=== PATIENT | female | born 1975 | race Caucasian/White ===

== ENCOUNTER 2017-01-29 19:46 | Inpatient (IN) | payer MEDICAID ==
[~2017-01-29] VITALS: Ht 170.2 cm; Wt 76.7 kg
[2017-01-29 19:48] VITALS: BP 162/117
--- NOTE | 2017-01-29 20:00 | NUR ---
PD AT BEDSIDE, PLACED ON 5150 HOLD.
--- NOTE | 2017-01-29 20:00 | NUR ---
PT WILLEM BLS. TAKEN TO BED 6
--- NOTE | 2017-01-29 20:05 | NUR ---
PATIENT IS A 41 Y/O FEMALE BIB [facility]/PD WHO PRESENTS TO THE ED C/O SUICIDAL IDEATION. PER PD PATIENT WAS FOUND OUTSIDE OF A [employer] WITH [employer] SHOUTING OUT THOUGHTS OF SUICIDAL IDEATION. PT ALTERED UPON ARRIVAL IN ED, RR EVEN/UNLABORED. DENIES CP, SOB, N/V/D AND PAIN. CLOTHING REMOVED, PT BELONGINGS SENT WITH SECURITY, EMT TIMMY AT THE BEDSIDE. PT REPOSITIONED FOR COMFORT, BED IN LOWEST POSITION. ER MD DR. CRISTINA NOTIFIED. WILL CONTINUE TO MONITOR.
[2017-01-29] MEDS ORDERED: LORazepam 1 MG TAB PO ONE ×2 (20:35→23:35)
--- NOTE | 2017-01-29 20:45 | NUR ---
5150 PAPERWORK COMPLETED AND SIGNED. PUT IN PT CHART.
--- NOTE | 2017-01-29 21:00 | NUR ---
PATIENT RESTING AT THIS TIME. NO SIGNS OF DISTRESS.
--- NOTE | 2017-01-29 21:32 | NUR ---
Dr. Avalos evaluating patient at bedside.
[2017-01-29 21:45] LABS: BASOPHILS # (AUTO) 0.1 K/uL (0.00-0.22); BASOPHILS % (AUTO) 4.7 % (0.0-2.0); EOSINOPHILS % (AUTO) 1.1 % (0.0-4.0); HEMATOCRIT 37.2 % (36-48); LYMPHOCYTES # (AUTO) 1.1 K/uL (2.5-16.5); MEAN CORPUSCULAR HEMOGLOBIN 27 pg (27-31); MEAN CORPUSCULAR HGB CONC 32 g/dL (33-37); MEAN CORPUSCULAR VOLUME 84 fL (80-94); MONOCYTES # (AUTO) 0.1 K/uL (0.8-1.0); MONOCYTES % (AUTO) 4.6 % (1.7-9.3); NEUTROPHILS # (AUTO) 1.6 K/uL (1.8-7.7); NEUTROPHILS % (AUTO) 53.6 % (42.2-75.2); PLATELET COUNT (AUTO) 198 K/uL (140-450); RED BLOOD CELL COUNT(AUTO) 4.41 MIL/uL (4.20-5.40); RED CELL DISTRIBUTION WIDTH 19.2 % (11.6-13.7); WHITE BLOOD COUNT (AUTO) 2.9 K/uL (4.8-10.8)
[2017-01-29] MEDS ORDERED: MULTIVITAMIN-12 10 ML, THIAMINE 100 MG, MAGNESIUM SULFATE 50% 2,000 MG, FOLIC ACID 5 MG... IV ONE ×5 (21:45)
[2017-01-29 21:47] LABS: APPEARANCE,URINE CLEAR (CLEAR); BILIRUBIN,URINE NEGATIVE (NEGATIVE); BLOOD, URINE 2+ (NEGATIVE); COLOR,URINE YELLOW (YELLOW); LEUKOCYTE ESTERASE ,URINE NEGATIVE (NEGATIVE); NITRITE, URINE NEGATIVE (NEGATIVE); UGLUCOSE NEGATIVE (NEGATIVE)
[2017-01-29 21:54] LABS: RBC,URINE 3-10 (FEW) /HPF (0-5); WBC,URINE 0-5 (RARE) /HPF (0-5)
[2017-01-29 21:56] LABS: BARBITURATE, URINE NEG. ng/ml (NEG <=200); BENZODIAZEPINE, URINE POS. ng/mL (NEG <=200); CANNABINOID, URINE NEG. ng/mL (NEG <=50); COCAINE, URINE NEG. ng/mL (NEG <=300); OPIATE, URINE NEG. ng/mL (NEG <=2000); PHENCYCLIDINE SCREEN,URINE NEG. ng/mL (NEG <=25)
[2017-01-29 21:56] LABS: CARBON DIOXIDE 26.8 mmol/L (21-32); CHLORIDE 103 mmol/L (98-107); CREATININE 0.6 mg/dL (0.6-1.3); GFR ARICAN-AMERICAN 142 mL/min (>90); GLUCOSE 93 mg/dL (74-106); POTASSIUM 3.8 mmol/L (3.5-5.1); SODIUM SERUM 141 mmol/L (136-145); UREA NITROGEN, BLOOD 8 mg/dL (7-18)
[2017-01-29] MEDS ORDERED: THIAMINE 200 MG/2 ML VIAL ONE (21:56)
[2017-01-29] MEDS ORDERED: MAGNESIUM SULFATE 50% 1000 MG/2 ML VIAL IV ONE (21:56)
[2017-01-29] MEDS ORDERED: MULTIVITAMIN-12 10 ML VIAL IV ONE (21:56)
[2017-01-29] MEDS ORDERED: FOLIC ACID 5 MG/ML SYR ONE (21:56)
--- NOTE | 2017-01-29 22:00 | NUR ---
PATIENT RESTING AT THIS TIME. NO SIGNS OF DISTRESS.
[2017-01-29 22:04] LABS: ACETAMINOPHEN < 0.5 ug/ml (10-30); ALBUMIN 4.2 g/dL (3.4-5.0); ASPARTATE AMINOTRANSFERASE 31 U/L (15-37); SALICYLATE < 2.8 mg/dL (2.8-20.0); TOTAL BILIRUBIN 0.4 mg/dL (0.0-1.0)
--- NOTE | 2017-01-29 23:00 | NUR ---
PATIENT RESTING AT THIS TIME. NO SIGNS OF DISTRESS.
[2017-01-30] VITALS (8 sets, daily range): BP systolic 155–182; BP diastolic 103–117
--- NOTE | 2017-01-30 | NUR ---
PATIENT RESTING AT THIS TIME.
--- NOTE | 2017-01-30 01:00 | NUR ---
PATIENT RESTING AT THIS TIME. NO SIGNS OF DISTRESS.
--- NOTE | 2017-01-30 02:00 | NUR ---
PATIENT RESTING AT THIS TIME. NO SIGNS OF DISTRESS.
--- NOTE | 2017-01-30 03:00 | NUR ---
PATIENT RESTING AT THIS TIME. NO DISTRESS AT THIS TIME.
--- NOTE | 2017-01-30 04:00 | NUR ---
PATIENT RESTING AT THIS TIME. NO SIGNS OF DISTRESS.
--- NOTE | 2017-01-30 05:00 | NUR ---
PATIENT RESTING AT THIS TIME. NO SIGNS OF DISTRESS.
[2017-01-30] MEDS ORDERED: MULTIVITAMIN-12 10 ML, THIAMINE 100 MG, MAGNESIUM SULFATE 50% 2,000 MG, FOLIC ACID 5 MG... IV ONE ×5 (05:15)
[2017-01-30] MEDS ORDERED: LORazepam 2 MG/ML VIAL IVP ONE ×2 (05:15)
[2017-01-30] MEDS ORDERED: THIAMINE 200 MG/2 ML VIAL ONE (05:43)
[2017-01-30] MEDS ORDERED: MULTIVITAMIN-12 10 ML VIAL IV ONE (05:43)
[2017-01-30] MEDS ORDERED: FOLIC ACID 5 MG/ML SYR ONE (05:43)
[2017-01-30] MEDS ORDERED: MAGNESIUM SULFATE 50% 1000 MG/2 ML VIAL IV ONE (05:43)
--- NOTE | 2017-01-30 06:00 | NUR ---
PATIENT RESTING AT THIS TIME. NO SIGNS OF DISTRESS.
[2017-01-30] MEDS ORDERED: MORPHINE SULFATE 2 MG/ML SYR IVP PRN (06:40)
[2017-01-30] MEDS: NACL 0.9% 1,000 ML IV SCH ×2 (06:40→10:20)
[2017-01-30] MEDS ORDERED: HYDROcodone/APAP 7.5/325 MG 1 TAB PO PRN (06:40)
[2017-01-30] MEDS ORDERED: DOCUSATE SODIUM 100 MG GELCAP PO PRN (06:40)
[2017-01-30] MEDS ORDERED: ONDANSETRON 4 MG/2 ML VIAL IM/IVP PRN (06:40)
[2017-01-30] MEDS ORDERED: ACETAMINOPHEN 325 MG TAB PO PRN (06:40)
--- NOTE | 2017-01-30 06:50 | NUR ---
Patient will be admitted to care of DR. GALICIA. Admited to TELE. Will go to room 109B. Belongings list completed. Report to SHOAIB ESCOBEDO.
--- NOTE | 2017-01-30 07:00 | NUR ---
RECEIVED PT. ON BED. PT. WAS ADMITTED FROM ER ON [facility] FLOOR AT 0647. AWAKE, ALERT, AND ORIENTED X4. SPEECH CLEAR. NO C/O PAIN. NO SOB, NOTED SKIN ABRASION ON LEFT LOWER LIPS, NOTED. CALM, QUIET, AND COOPERATIVE. NO SUICIDAL THOUGHTS OBSERVED. KEEP COMFORTABLE ON BED. EXPLAINED DIAGNOSIS, PLAN OF CARE, PAIN MANAGEMENT TEACHING, USE OF CALL LIGHT/BED/TV/BATHROOM. VERBALIZED UNDERSTANDING. CLOSELY WATCHED PT. 1:1.
--- NOTE | 2017-01-30 07:40 | NUR ---
DR. MAI CAME AND SPOKE TO PT.. PT. CALM, AND COOPERATIVE. COMMUNICATE WITH MD VERY WELL. INFORMED DR. MAI ABOUT VS AT 0715.
[2017-01-30 07:55] LABS: CHOL/HDL RATIO 1.5 (1-4.5); FREE T4 (FREE THYROXINE) 0.79 ng/dL (0.76-1.46); MAGNESIUM 1.8 mg/dL (1.8-2.4); PHOSPHORUS 2.7 mg/dL (2.5-4.9); THYROID STIMULATING HORMONE 0.94 uIU/mL (0.34-3.74)
[2017-01-30 08:41] LABS: PROTHROMBIN TIME 10.8 secs (10.8-13.4)
[2017-01-30] MEDS ORDERED: AMLO5TAB PO ×2 (09:10→09:54)
[2017-01-30] MEDS ORDERED: amLODIPine 5 MG TAB PO SCH ×2 (09:15→12:00)
[2017-01-30] MEDS: MULTIVITAMIN 1 TAB PO SCH (09:29)
[2017-01-30] MEDS: FOLIC ACID 1 MG TAB PO SCH (09:29)
[2017-01-30] MEDS: THIAMINE 100 MG TAB PO SCH (09:29)
--- NOTE | 2017-01-30 09:34 | NUR ---
US TECH CAME FOR PT. PROCEDURE. CALM AND COOPERATIVE.
--- NOTE | 2017-01-30 10:55 | NUR ---
RESIDENTS MD MADE THEIR ROUNDS AND SPOKE TO PT. ON BEDSIDE. PT. CALM, QUIET, AND COOPERATIVE.
[2017-01-30] MEDS ORDERED: SERTRALINE 50 MG TAB PO SCH (11:25)
--- NOTE | 2017-01-30 11:46 | NUR ---
WENT TO BATHROOM. TOLERATED WELL. NO SOB, NOTED. NO UNTOWARD BEHAVIOR SEEN. CONTINUE MONITORING.
[2017-01-30] MEDS: LORazepam 1 MG TAB PO SCH ×2 (13:38→21:23)
--- NOTE | 2017-01-30 14:06 | NUR ---
Social Service Note: I faxed inquiry to [facility], phone number , fax .
--- NOTE | 2017-01-30 14:34 | NUR ---
WENT TO BATHROOM WITHOUT ASSISTANCE. HAD STEADY GAIT AND BALANCE. TOLERATED WELL. NO C/O PAIN. NO SOB, NOTED.
--- NOTE | 2017-01-30 14:46 | NUR ---
COLLECTED STOOL SPECIMEN FOR STOOL OB AND SEND TO LABORATORY PER MD ORDER.
[2017-01-30] MEDS ORDERED: METOPROLOL SUCCINATE 50 MG TABER PO SCH (15:00)
--- NOTE | 2017-01-30 15:30 | NUR ---
TOPROL XL 12.5 MG PO GIVEN PER MD ORDER. TOLERATED WELL. NO DRUG REACTION NOTED. WILL MONITOR.
--- NOTE | 2017-01-30 17:40 | NUR ---
WENT TO BATHROOM WITHOUT ASSISTANCE. TOLERATED WELL. NO C/O PAIN. NO SOB, NOTED. CONTINUE TO MONITOR.
--- NOTE | 2017-01-30 17:45 | NUR ---
INFORMED DR. MAI ABOUT VS AT 1730. ALSO INFORMED CHARGE NURSE CASEY AVALOS -FANNY.
[2017-01-30] MEDS: LISINOPRIL 10 MG TAB PO SCH (17:50)
--- NOTE | 2017-01-30 17:55 | NUR ---
DR. QUINTANILLA CAME AND SPOKE TO PT. AT BEDSIDE. PT. CALM AND COOPERATIVE.
[2017-01-30] MEDS ORDERED: LISINOPRIL 10 MG TAB PO SCH (18:10)
--- NOTE | 2017-01-30 18:38 | NUR ---
DR. QUINTANILLA DONE TALKING TO PT. AND CAME OUT FROM PT. ROOM AND STATES "PT. OUT FROM 5150 STATUS AND NO NEED FOR A SITTER". INFORMED CHARGE NURSE CASEY AVALOS -FANNY.
--- NOTE | 2017-01-30 19:35 | NUR ---
RECEIVED REPORT FROM DAY NURSE, PT IN STABLE CONDITION, NO S/S OF DISTRESS NOTED/ NO SUICIDAL IDEATIONS NO PLAN. PT IS AAOX4, ON RA. IV TO R FA 22G, INTACT AND INFUSING WELL. PT HAS ABRASION TO L LOWER LIP. RESPIRATIONS ARE EVEN AND UNLABORED. BOWEL SOUNDS PRESENT. INITIAL ASSESSMENT COMPLETE. PLAN OF CARE DISCUSSED WITH PT, VERBALIZED UNDERSTANDING. ALL SAFETY PRECAUTIONS MET, CALL LIGHT WITHIN REACH, WILL CONTINUE TO MONITOR.
--- NOTE | 2017-01-30 21:10 | NUR ---
DR. MERINO MADE AWARE OF B/P 187/113, WILL CARRY OUT NEW ORDERS
[2017-01-30] MEDS: hydrALAZINE 20 MG/ML VIAL IVP PRN (21:25)
--- NOTE | 2017-01-30 22:15 | NUR ---
B/P IS NOW 143/92 AND HAS GONE DOWN. PT RESTING COMFORTABLY IN BED. NO S/S OF DISTRESS
[2017-01-30] MEDS: LORazepam 1 MG TAB PO PRN (23:55)
[2017-01-31] VITALS: BP 153/73
--- NOTE | 2017-01-31 | NUR ---
PT RESTING COMFORTABLY IN BED, B/P IS STABLE. NO S/S OF DISTRESS NOTED. NO SUICIDAL IDEATION OR PLAN IN PLACE
--- NOTE | 2017-01-31 02:23 | NUR ---
PT RESTING COMFORTABLY IN BED, B/P IS STABLE. NO S/S OF DISTRESS NOTED. NO SUICIDAL IDEATION OR PLAN IN PLACE
[2017-01-31 04:00] VITALS: BP 142/97
[2017-01-31] MEDS: LORazepam 1 MG TAB PO SCH ×2 (05:38→13:00)
[2017-01-31] MEDS: LORazepam 1 MG TAB PO PRN ×2 (05:45→12:55)
--- NOTE | 2017-01-31 05:46 | NUR ---
PT REFUSED TO TAKE SCHEDULED ATIVAN. PT STATED, "I DO NOT WANT TO BE DROWSY TODAY PLEASE DON'T GIVE ME THAT." EXPLAINED THE RISKS AND BENEFITS PT VERBALIZED UNDERSTANDING
[2017-01-31 06:10] LABS: BASOPHILS # (AUTO) 0.1 K/uL (0.00-0.22); BASOPHILS % (AUTO) 3.5 % (0.0-2.0); EOSINOPHILS # (AUTO) 0.1 K/uL (0-0.4); EOSINOPHILS % (AUTO) 2.4 % (0.0-4.0); HEMATOCRIT 33.8 % (36-48); LYMPHOCYTES # (AUTO) 1.1 K/uL (2.5-16.5); LYMPHOCYTES % (AUTO) 31.3 % (20.5-51.1); MEAN CORPUSCULAR HEMOGLOBIN 27 pg (27-31); MEAN CORPUSCULAR HGB CONC 33 g/dL (33-37); MEAN CORPUSCULAR VOLUME 83 fL (80-94); MONOCYTES # (AUTO) 0.3 K/uL (0.8-1.0); MONOCYTES % (AUTO) 9.2 % (1.7-9.3); NEUTROPHILS # (AUTO) 1.9 K/uL (1.8-7.7); NEUTROPHILS % (AUTO) 53.6 % (42.2-75.2); PLATELET COUNT (AUTO) 143 K/uL (140-450); RED BLOOD CELL COUNT(AUTO) 4.05 MIL/uL (4.20-5.40); WHITE BLOOD COUNT (AUTO) 3.5 K/uL (4.8-10.8)
[2017-01-31 06:22] LABS: ANION GAP 9.9 (8-16); CARBON DIOXIDE 26.3 mmol/L (21-32); CREATININE 0.6 mg/dL (0.6-1.3); POTASSIUM 3.2 mmol/L (3.5-5.1)
[2017-01-31 06:27] LABS: MAGNESIUM 1.7 mg/dL (1.8-2.4); PHOSPHORUS 2.6 mg/dL (2.5-4.9)
--- NOTE | 2017-01-31 07:15 | NUR ---
REPORTED LABS OF POTASSIUM 3.2, MAGNESIUM 1.7 AND CREATININE OF 4 TO
--- NOTE | 2017-01-31 07:29 | NUR ---
REPORT GIVEN TO DAY NURSE AT BEDSIDE, PT IN STABLE CONDITION NO S/S OF DISTRESS NOTED
--- NOTE | 2017-01-31 07:35 | NUR ---
RECEIVED PT REPORT AT BEDSIDE FROM NIGHT NURSE. PT IS AAOX4 AND SHOWS NO S/S OF ACUTE DISTRESS ON ROOM AIR. PT HAS LOWER LIP ABRASION; OTHERWISE, SKIN IS INTACT. ON TELE MONITOR. IV NOTED ON THE R FA WITH IVF'S INFUSING WELL. PT DENIES PAIN. PT STATED LBM 01/30/17. PT WAS EXPLAINED POC FOR TODAY AND VERBALIZED UNDERSTANDING. PT'S BED IS LOWERED WITH CALL LIGHT WITHIN REACH. WILL CONTINUE TO MONITOR.
[2017-01-31 08:00] VITALS: BP 144/113
--- NOTE | 2017-01-31 08:00 | NUR ---
PT BP IS 144/113 HR 84. PT DENIES PAIN AND SOB. WILL ADMINISTER SCHEDULED AM MEDICATIONS AND REASSESS BP.
[2017-01-31] MEDS ORDERED: AMLO10TA PO (08:10)
[2017-01-31] MEDS ORDERED: ATI.5 PO (08:12)
[2017-01-31] MEDS ORDERED: SERT50TA PO (08:37)
[2017-01-31] MEDS: MULTIVITAMIN 1 TAB PO SCH (08:48)
[2017-01-31] MEDS: FOLIC ACID 1 MG TAB PO SCH (08:48)
[2017-01-31] MEDS: LISINOPRIL 10 MG TAB PO SCH (08:49)
[2017-01-31] MEDS: THIAMINE 100 MG TAB PO SCH (08:49)
--- NOTE | 2017-01-31 08:50 | NUR ---
ADMINISTERED SCHEDULED MEDICATIONS. PT WAS ABLE TO TAKE ALL MEDICATIONS WITH NO COMPLICATIONS. ALL NEEDS MET AT THIS TIME. DR PRUETT SAW PT AND VERIFIED PT'S PHARMACY.
[2017-01-31] MEDS ORDERED: MAGNESIUM OXIDE 400 MG TAB PO SCH (09:00)
[2017-01-31] MEDS ORDERED: amLODIPine 5 MG TAB PO SCH ×2 (09:00)
[2017-01-31] MEDS ORDERED: SERTRALINE 50 MG TAB PO SCH (09:00)
[2017-01-31] MEDS ORDERED: POTASSIUM CHLORIDE 10 MEQ TABER PO SCH (09:00)
--- NOTE | 2017-01-31 10:04 | NUR ---
PATIENT HAS BEEN SCREENED AND CATEGORIZED LOW NUTRITION RISK. PATIENT WILL BE SEEN WITHIN 7 DAYS OF ADMISSION. 02/05/[address]
--- NOTE | 2017-01-31 10:20 | NUR ---
PT BP IS 150/[address] PRUETT.
--- NOTE | 2017-01-31 10:21 | NUR ---
CM NOTE SPOKE W/ HEATHER FROM [facility]. MADE AWARE PATIENT HAS BEEN CLEARED BY PSYCH AND WILL BE DISCHARGED HOME.
[2017-01-31] MEDS: hydrALAZINE 20 MG/ML VIAL IVP PRN (10:46)
--- NOTE | 2017-01-31 10:46 | NUR ---
ADMINISTERED HYDRALAZINE PRN FOR SBP > 160 AND DBP > 90. WILL REASSESS IN AN HR.
[2017-01-31 12:00] VITALS: BP 145/104
--- NOTE | 2017-01-31 12:00 | NUR ---
PT BP IS 145/104 DR PRUETT IS AWARE. DR ORDERED TO NOT GIVE ATIVAN 1 MG PO AND GIVE PRN ATIVAN 2MG PO INSTEAD. WILL FOLLOW THROUGH WITH ORDERS.
[2017-01-31 15:00] VITALS: BP 149/99
--- NOTE | 2017-01-31 15:10 | NUR ---
PT IS ASLEEP AND SHOWS NO S/S OF ACUTE DISTRESS ON ROOM AIR. WILL CONTINUE TO MONITOR.
--- NOTE | 2017-01-31 15:45 | NUR ---
DR PRUETT IS AWARE OF PT BP OF 149/[address] KLINEAYED PT TO BE DISCHARGE. PT DENIES PAIN AND SOB.
--- NOTE | 2017-01-31 15:50 | NUR ---
PT HAS BEEN DISCHARGED. ALL DISCHARGE INSTRUCTIONS AND PRESCRIPTIONS GIVEN AND IN PT'S POSSESSION. ALL PAPERWORK SIGNED. ALL QUESTIONS ANSWERED. ALL BELONGINGS AND PRESCRIPTIONS IN PT POSSESSION. IV DISCONTINUED WITH CANNULA INTACT. WRISTBAND AND TELE MONITOR REMOVED. OFFERED PT WHEELCHAIR HOWEVER PT PREFERRED TO AMB OFF UNIT. PT LEFT UNIT IN STABLE CONDITION, STEADY GAIT WITH SANDRA RAHMAN PRESENT AT SIDE.
[2017-02-01 06:20] LABS: T4 (THYROXINE) 5.5 ug/dL (4.5-12.0)
== END 2017-01-31 15:50 | disposition home or self-care (01) | DRG 775 ==
LOC: MED 19:46 → MTU 01-30 06:40 → MED 01-30 06:45
PROVIDERS: ADMIT Family Medicine; ATTEND Family Medicine
DX: F10.239 Alcohol dependence with withdrawal, unspecified (principal); R45.851 Suicidal ideations; D70.9 Neutropenia, unspecified; F33.1 Major depressive disorder, recurrent, moderate; E83.42 Hypomagnesemia; I10 Essential (primary) hypertension; E87.6 Hypokalemia; Y90.8 Blood alcohol level of 240 mg/100 ml or more; F41.1 Generalized anxiety disorder; R31.9 Hematuria, unspecified; Z79.899 Other long term (current) drug therapy
CPT/HCPCS: 36415; 76770; 80048; 80053; 80305; 81001; 81025; 82150; 82272; 83036; 83690; 83735; 83880; 84100; 84436; 84439; 84443; 84479; 84484; 85025; 85610; 85730; 87081; 93005; 93976; 96365; 96366; 96375; 96376; 99285; A9153; G0480; G0482; J0360; J2060; J3411; J3475; J3490; J7030; Q0092

== ENCOUNTER 2020-12-11 13:11 | Emergency (ER) | payer MEDICAID ==
[~2020-12-11] VITALS: Ht 172.7 cm; Wt 95.3 kg
[~2020-12-11 13:11] MED LIST: AMLO10TA PO; ATI.5 PO; SERT50TA PO
[2020-12-11 13:12] VITALS: BP 139/97
--- NOTE | 2020-12-11 13:19 | NUR ---
PT TAKEN TO LOBBY
--- NOTE | 2020-12-11 13:47 | NUR ---
PATIENT NO LONGER FOUND IN LOBBY AT THIS TIME
[2020-12-11 14:05] VITALS: BP 139/97
--- NOTE | 2020-12-11 14:05 | NUR ---
PATIENT ELOPED FROM FACILITY. DISCHARGE INSTRUCTIONS NOT GIVEN TO PATIENT. DR. FARIAS NOTIFIED.
== END 2020-12-11 14:05 | disposition left against medical advice (07) ==
LOC: MED 13:11
DX: S09.90XA Unspecified injury of head, initial encounter (principal); F10.129 Alcohol abuse with intoxication, unspecified; Z53.21 Procedure and treatment not carried out due to patient leaving prior to being seen by health care provider; X58.XXXA Exposure to other specified factors, initial encounter; Y93.89 Activity, other specified; Y92.89 Other specified places as the place of occurrence of the external cause; Y99.8 Other external cause status

== ENCOUNTER 2020-12-11 17:05 | Emergency (ER) | payer MEDICAID ==
[~2020-12-11] VITALS: Ht 167.6 cm; Wt 84.8 kg
[2020-12-11 17:40] VITALS: BP 157/55
--- NOTE | 2020-12-11 17:44 | NUR ---
PATIENT LEFT WITHOUT BEING SEEN BY DR. FARIAS. NO FURTHER CARE PROVIDED FOR PATIENT.
== END 2020-12-11 17:44 | disposition left against medical advice (07) ==
LOC: MED 17:05
DX: Z53.21 Procedure and treatment not carried out due to patient leaving prior to being seen by health care provider (principal)